=== PATIENT | female | born 2000 | race Caucasian/White ===

== ENCOUNTER → 2021-12-30 08:55 | Outpatient (CLI) | payer BC, SELFPAY | PROVIDERS: Visit Provider Obstetrics & Gynecology | DX: N92.6 Irregular menstruation, unspecified (principal) | CPT/HCPCS: 36415; 84702 ==

== ENCOUNTER → 2021-12-31 10:42 | Outpatient (CLI) | payer BC, SELFPAY ==
[2021-12-31 11:16] LABS: Basophils % 0.2 % (0.1-2.0); Eosinophils # 0.1 K/mm3 (0.0-0.4); Eosinophils % 0.8 % (0.1-12.0); Hematocrit 34.8 % (37.0-47.0); Hemoglobin 11.7 g/dL (12.2-16.2); Lymphocytes # 1.4 K/mm3 (0.7-4.5); Lymphocytes % 19.8 % (10-50); Mean Corpuscular HGB Conc 33.5 g/dL (31.8-35.4); Mean Corpuscular Hemoglobin 30.5 pg (27.0-31.2); Mean Platelet Volume 7.1 fl (7.4-10.4); Monocytes # 0.5 K/mm3 (0.1-1.0); Monocytes % 6.2 % (1.7-9.3); Neutrophils # 5.3 K/mm3 (1.8-7.8); Platelet Count 308 K/mm3 (142-424); Red Blood Count 3.83 M/mm3 (4.20-5.40); Red Cell Distribution Width 13.2 % (11.5-17.5); White Blood Count 7.3 K/mm3 (4.8-10.8)
[2022-01-01 06:15] LABS: HIV Screen 4th Generation wRfx Non Reactive (Non Reactive)
[2022-01-01 07:12] LABS: Hepatitis B Surface Antigen Negative (Negative); Hepatitis C Antibody 0.1 s/co ratio (0.0-0.9)
[2022-01-01 08:25] LABS: Rubella Antibodies, IgG 1.88 index (Immune >0.99)
[2022-01-01 12:11] LABS: Rapid Plasma Reagin Ab Titer Non Reactive (NonRea<1:1)
== END ==
PROVIDERS: Visit Provider Obstetrics & Gynecology
DX: Z34.90 Encounter for supervision of normal pregnancy, unspecified, unspecified trimester (principal)
CPT/HCPCS: 36415; 85025; 86592; 86703; 86762; 86850; 87086; 87088; 87186; 87340; 87380; G0432

== ENCOUNTER → 2022-03-25 10:06 | Outpatient (CLI) | payer BC, SELFPAY ==
--- NOTE | 2022-03-25 10:12 | US_ITS ---
FINAL REPORT CLINICAL HISTORY: 20 week anatomy scan FINDINGS: There is a single live intrauterine gestation. Presentation is cephalic. The cervix is closed and measures 3.8 cm. Placenta is posterior, grade 1. movement is noted. Heart rate is detected at 142 beats per minute. Three-vessel cord with satisfactory umbilical cord insertion. Four-chamber heart is noted. ABDOMEN: Both kidneys are unremarkable. Stomach is unremarkable. SPINE: No anomalies identified. AMNIOTIC FLUID: Appropriate amount. MEASUREMENTS: ULTRASOUND AGE: 19 weeks 5 days. GESTATION AGE: 20 weeks 0 days. ESTIMATED WEIGHT: 310 g GROWTH PERCENTILE: 31 % BPD: 4.54 cm corresponding to 19 weeks 6 days. OFD: 5.80 cm corresponding to 20 weeks 0 days. HC: 16.36 cm corresponding to 19 weeks 1 day. AC: 14.49 cm corresponding to 19 weeks 6 days. FL: 3.16 cm corresponding to 19 weeks 6 days. CEREBELLUM: 1.94 cm corresponding to 20 weeks 0 days. HUMERUS: 2.99 cm corresponding to 19 weeks 6 days. HC/AC: 1.13 CI: 78% FL/BPD: 70% FL/AC: 22% IMPRESSION: Single living IUP with an ultrasound age of 19 weeks 5 days. Reviewed, Interpreted and Dictated by Warren Morillo III, MD Transcribed by Montserrat Sharma Authenticated and [facility]
== END ==
PROVIDERS: PCP Obstetrics & Gynecology; Visit Provider Obstetrics & Gynecology
DX: Z34.90 Encounter for supervision of normal pregnancy, unspecified, unspecified trimester (principal); Z3A.20 20 weeks gestation of pregnancy
CPT/HCPCS: 76811

== ENCOUNTER 2022-05-13 15:03 | Outpatient (CLI) | payer BC, SELFPAY ==
[2022-05-13 15:12] VITALS: BMI 37.2
[2022-05-13 15:31] LABS: Microscopic, Urine URINE MICROSCOPIC (MICROSCOPIC)
[2022-05-13 15:35] VITALS: BP 129/81; PULSE 104; RESP 17; TEMP 36.7; O2SAT 99; BMI 37.2
[2022-05-13 15:38] LABS: Appearance,Urine CLEAR (Clear); Bilirubin,Urine Negative (Negative); Blood, Urine Negative (Negative); Color,Urine YELLOW (Yellow); Glucose,Urine (UA) 2+ (Negative); Ketones,Urine Negative (Negative); Leukocyte Esterase,Urine Negative (Negative); Nitrate,Urine Negative (Negative); Protein,Urine 1+ (Negative); Specific Gravity, Urine >= 1.030 (1.005-1.030); Urobilinogen,Urine 0.2 EU/dl (0.2)
[2022-05-13 15:50] LABS: Amphetamine/Metha Screen,Urine Negative ng/ml (<1000)
[2022-05-13 15:51] LABS: Barbiturates Screen,Urine Negative ng/ml (<200); Benzodiazepines Screen,Urine Negative ng/ml (<200)
[2022-05-13 15:52] LABS: Cannabinoid Screen,Urine Negative ng/ml (<50)
[2022-05-13 15:53] LABS: Cocaine Screen,Urine Negative ng/ml (<300); Methadone Screen,Urine Negative ng/ml (<300)
[2022-05-13 15:54] LABS: Opiate Screen,Urine Negative ng/ml (<300)
[2022-05-13 16:03] LABS: Phencyclidine Screen,Urine Negative ng/ml (<25)
[2022-05-13 16:13] LABS: Bacteria,Urine 3+ /lpf; WBC,Urine Occasional #/hpf (0-3)
== END 2022-05-13 16:45 | disposition home or self-care (01) ==
LOC: OBOUT 15:04 → OB 15:05
PROVIDERS: Visit Provider Obstetrics & Gynecology
DX: O26.892 Other specified pregnancy related conditions, second trimester (principal); Z3A.26 26 weeks gestation of pregnancy; R10.9 Unspecified abdominal pain; M54.50 Low back pain, unspecified
CPT/HCPCS: 59025; 80305; 81001; 87086; G0463

== ENCOUNTER → 2022-05-19 08:50 | Outpatient (CLI) | payer BC, SELFPAY ==
[2022-05-19 09:50] LABS: Glucose,Fasting 98 mg/dl (74-100)
[2022-05-19 11:10] LABS: Glucose 1 Hour 205 mg/dL (74-100)
== END ==
PROVIDERS: PCP Obstetrics & Gynecology; Visit Provider Obstetrics & Gynecology
DX: Z34.90 Encounter for supervision of normal pregnancy, unspecified, unspecified trimester (principal); Z3A.24 24 weeks gestation of pregnancy
CPT/HCPCS: 36415; 82951

== ENCOUNTER → 2022-07-10 13:24 | Outpatient (CLI) | payer BC, SELFPAY | PROVIDERS: Visit Provider Obstetrics & Gynecology | DX: Z34.90 Encounter for supervision of normal pregnancy, unspecified, unspecified trimester (principal) | CPT/HCPCS: 86403 ==

== ENCOUNTER 2022-07-28 14:49 | Inpatient (IN) | payer BC, SELFPAY ==
[2022-07-28] VITALS (40 sets, daily range): BP systolic 116–181; BP diastolic 76–115; PULSE 80–123; RESP 15–18; TEMP 36.6–36.8; O2SAT 94–99; BMI 32.2
[2022-07-28 12:39] LABS: Coronavirus 19, PCR Not Detected (NotDetected); Influenza A, PCR Not Detected (NotDetected); Influenza B, PCR Not Detected (NotDetected)
[2022-07-28 12:48] LABS: Basophils % 0.4 % (0.1-2.0); Eosinophils # 0.1 K/mm3 (0.0-0.4); Eosinophils % 1.1 % (0.1-12.0); Hematocrit 31.6 % (37.0-47.0); Hemoglobin 10.4 g/dL (12.2-16.2); Lymphocytes # 1.4 K/mm3 (0.7-4.5); Lymphocytes % 15.1 % (10-50); Mean Corpuscular Hemoglobin 28.6 pg (27.0-31.2); Mean Corpuscular Volume 86.8 fl (81-99); Mean Platelet Volume 8.8 fl (7.4-10.4); Monocytes # 0.6 K/mm3 (0.1-1.0); Monocytes % 6.5 % (1.7-9.3); Neutrophils # 7.3 K/mm3 (1.8-7.8); Neutrophils % 76.9 % (37.0-80.0); Platelet Count 236 K/mm3 (142-424); Red Blood Count 3.65 M/mm3 (4.20-5.40); Red Cell Distribution Width 16.4 % (11.5-17.5); White Blood Count 9.5 K/mm3 (4.8-10.8)
[2022-07-28 12:55] LABS: Anion Gap 4.2 mEq/L (5-15); Blood Urea Nitrogen 11 mg/dl (7-17); Calcium 8.5 mg/dl (8.4-10.2); Carbon Dioxide 23 mmol/L (22.0-30.0); Chloride 109 mmol/L (98-107); Creatinine Clearance Estimated 147 mL/min (50-200); Estimated Glomerular Filt Rate 89 ml/min (>60); GFR (African American) 108 ML/MIN (>60); Glucose 77 mg/dl (74-100); Potassium 4.2 mmoL/L (3.5-5.1); Sodium 132 mmol/L (136-145)
[2022-07-28 13:00] LABS: D-Dimer 2.36 ug/mL (0.0-0.5)
[2022-07-28 13:06] LABS: Activated Partial Thrombo Time 24.3 seconds (22.8-30.6); Fibrinogen 542 mg/dL (229.9-363.5); Prothrombin Time 9.8 seconds (10.1-12.5)
[2022-07-28 13:29] LABS: Alanine Aminotransferase 16 U/L (12-78); Aspartate Amino Transferase 25 U/L (14-36); Uric Acid 5.8 mg/dl (2.5-6.2)
[2022-07-28 14:43] LABS: POC Glucose,Bedside 71 (70-110)
--- NOTE | 2022-07-28 15:02 | P.PN_ITS ---
[facility] Disclaimer: The information contained in this section may have been updated after the patient was seen, as this information can be updated by other users. Medical History Breech presentation Elevated blood pressure affecting , antepartum Gestational diabetes LGA (large for gestational age) fetus Migraine Nausea & vomiting Screening for genetic disease carrier status Social History Smoking Status: Never smoker alcohol intake: never substance use type: denies use current occupational status: employed Travel in the last 8 weeks: None [facility] Anesthesia Checklist Patient Identification Patient Identification: Arm Band and Verbal (Name & ) Structural Data Admitted From: Home Planned Operative Procedure/s: C/S Consent for Planned Operative Procedure(s) Verified: Yes NPO Status Verified Time NPO: 00:00 Chart Verification Results Verified: CBC, BMP and HCG Additional verifications Patient : Yes Airway Assessment C-Spine Mobility Assessed: Yes TMJ Mobility Assessed: Yes Dentition: Good Dentition Neurological Assessment Level of Consciousness: Awake Hx Seizures: No Numbness or tingling in extremities: No Anesthesia Plan Anesthesia Risk discussed: Yes Anesthesia Plan: Verified ASA Class: II (E) Anesthesia Type: Spinal
--- NOTE | 2022-07-28 15:04 | EXP.OB.APHP ---
OB - H&P: HPI Antepartum History of Present Illness Chief complaint: Elevated blood pressure History of present illness: Ms Isa Lr is a 22 yo at 37w6d, by LMP and confirmed by first trimester ultrasound, who presents to [facility] Labor and Delivery from the office for elevated blood pressure. She denies headaches and vision changes. Admits to lower extremity swelling. GDMA2. She has been taking lantus 14 units nightly at bedtime and following with PDC. Reports baby is very active. Baby is breech presentation. BP in the office was 154/108, 140/108, 160/106. Upon arrival to L&D BP was 156/103. 300 + protein in urinalysis. PIH labs within normal limits History of Present Criteria for establishing EDC:: LMP confirmed by 1st trimester US care: good care Ultrasounds: normal mid trimester US Obstetrical complications: gestational diabetes and preeclampsia Medical complications: none Labs Blood type: A (+) positive Rubella: immune RPR/VDRL: nonreactive GBS status: negative HBsAG: negative PFSH PFSH Disclaimer: The information contained in this section may have been updated after the patient was seen, as this information can be updated by other users. Medical History (Updated 07/28/22 @ 15:21 by Nelida Hahn DO) Breech presentation Elevated blood pressure affecting , antepartum Gestational diabetes LGA (large for gestational age) fetus Migraine Nausea & vomiting Preeclampsia with 37 weeks completed gestation Screening for genetic disease carrier status Social History Smoking Status: Never smoker alcohol intake: never substance use type: denies use current occupational status: employed Travel in the last 8 weeks: None Review of Systems Review of Systems Review of systems:: pertinent systems reviewed and negative unless documented below Meds Home Medications and Allergies Home Medications Medication Instructions Recorded Confirmed Type insulin detemir U-100 100 unit/mL 14 unit SQ HS Diabetes 06/17/22 07/28/22 History (3 mL) subcutaneous pen (Levemir FlexTouch U-100 Insulin) blood sugar diagnostic (OneTouch 07/28/22 07/28/22 History Ultra Test strips) blood-glucose meter 07/28/22 07/28/22 History prenat.vits,varsha,[id number] 1 tab PO DAILY Supplement 07/28/22 07/28/22 History New Prescriptions to Start Prescriptions: Allergies Allergy/AdvReac Type Severity Reaction Status Date / Time No Known Allergies Allergy Verified 07/28/22 11:13 OB - H&P: Exam Physical Exam Vital signs: Temp Pulse Resp BP Pulse Ox 97.8 F 83 18 156/103 H 97 07/28/22 12:26 07/28/22 12:26 07/28/22 12:26 07/28/22 12:26 07/28/22 12:26 Constitutional no acute distress and cooperative Routine HEENT Exam Head: Present normocephalic and atraumatic Eye: Absent conjunctivae pink ENT: Present mucous membranes moist and dentition normal Routine Neck Exam Present full ROM Routine Respiratory Exam Present CTA bilaterally and normal respiratory effort Routine Cardiovascular Exam Present RRR Routine Abdominal Exam Present soft (Gravid); Absent tenderness Routine Rectal Exam Patient deferred: visual exam Routine Exam Patient deferred: external exam Routine Extremities Exam Present edema (+1 bilateral lower extremity edema) and full ROM; Absent calf tenderness Routine Neurological Exam Present alert, oriented X3 and moving all extremities Detailed Labor and Delivery Exam Membranes: intact Baseline heart rate: 130 monitor accelerations: Present monitor decelerations: None terminal manager variability: Moderate (11-25) OB - Results Labs Labs: Short CBC 07/28/22 Range/Units 12:30 WBC 9.5 (4.8-10.8) K/mm3 Hgb 10.4 L (12.2-16.2) g/dL Hct 31.6 L (37.0-47.0) % Plt Count 236 (142-424) K/mm3 BMP 07/28/22 12:30 Sodium 132 L Potassium 4.2 Chlori
[2022-07-28 15:48] LABS: Cord Blood PH 7.26 (7.35-7.45)
--- NOTE | 2022-07-28 16:22 | EXP.OP.NOTE ---
Date of procedure: 07/28/22 Pre-op Diagnosis:: 1. IUP at 37w6d 2. Preeclampsia without severe features 3. GDMA2 4. LGA baby 5. Breech presentation Post-op Diagnosis:: 1. IUP at 37w6d 2. Preeclampsia without severe features 3. GDMA2 4. LGA baby 5. Breech presentation Procedure performed:: Primary Low Transverse Section Surgeon:: Nelida Hahn DO Retail Store Clerk(s):: Carlos Montalvo MD SUPERVISOR ENGRAVING:: Ananya Bar Anesthesia: spinal Estimated blood loss (mL): 700 Clinical Note:: Ms Isa Lr is a 22 yo at 37w6d, by LMP and confirmed by first trimester ultrasound, who presents to [facility] Labor and Delivery from the office for elevated blood pressure. She denies headaches and vision changes. Admits to lower extremity swelling. GDMA2. She has been taking lantus 14 units nightly at bedtime and following with PDC. Reports baby is very active. Baby is breech presentation. BP in the office was 154/108, 140/108, 160/106. Upon arrival to L&D BP was 156/103. 300 + protein in urinalysis. PIH labs within normal limits. Operative findings:: 1. Live female baby weighing 9 lb 2 oz, AGPARs 8, 9 2. Joe Breech presentation 3. Nuchal cord x 1 4. Grossly normal appearing uterus, bilateral fallopian tubes and ovaries Operative note:: The risks, benefits and alternatives of the procedure were reviewed with the patient. Informed consent was obtained. Patient was taken to the operating room where spinal was placed. The patient received 2 grams of Ancef preoperatively. Patient was placed in dorsal supine position with a leftward tilt. SCDs in place. Fisher catheter was placed and draining clear urine prior to the start of the procedure. heart tones were obtained. Patient was then prepped and draped in normal sterile fashion. Allis clamp test was performed to ensure adequate anesthesia. A Pfannenstiel skin incision was made 2 cm above pubic symphysis. This was carried through to underlying layer of fascia. Fascia was incised in midline, extended laterally with Mattson scissors. Superior aspect of fascial incision was grasped with two Zi clamps, elevated up, and rectus muscle dissected off bluntly and sharply with Mattson scissors. The retcus muscle was then in the midline and the peritoneum was entered bluntly with a digit. Peritoneal incision was then extended superiorly and inferiorly with good visualization of the bladder. Seb retractor was inserted. The lower uterine segment was incised in a transverse fashion. Clear amniotic fluid was noted. Baby was in joe breech presentation and delivered using standard breech delivery techniques. Nuchal x 1 was easily reduced. Mouth and nares were bulb suctioned. Spontaneous cry was noted. Delayed cord clamping was performed for 60 seconds. The umbilical cord was clamped and cut. The infant was handed to awaiting pediatric staff in stable condition. Dr. Garcia was present. Apgars were 8(1 min), 9(5 min). Cord blood was obtained. Gentle traction on the umbilical cord and uterine fundal massage delivered the placenta. Placenta was intact. Placenta will be sent to pathology for review. Uterus was cleared of all clots and debris with a moist laparotomy sponge. Corners of the uterine incision were grasped with Allis clamps. The uterine incision was reapproximated with # 1 Vicryl suture in a running, locked stitch. Second layer of the same stitch was used to imbricate the incision. Excellent hemostasis was noted. Posterior cul-de-sac was cleaned with moist laparotomy sponge. (Uterus returned to the abdomen)Gutters cleared of all clots and debris with a moist laparotomy sponge. Reinspection of the lower uterine segment demonstrated small amount of oozing. Karley was applied over uterine incision. Hemostasis was noted. At this point all instruments and sponges were removed from the pelvis.? The peritoneum was grasped with Viky clamps x 3. The peritoneum was reapproximated with 0 Vicryl suture in a running stitch. The corners
--- NOTE | 2022-07-28 16:28 | P.PNANES_ITS ---
[facility] Anesthesia Record Part I Anesthesia Record I Intake, IV Amount: 1,000 Estimated blood loss (mL): 700 Urine output (mL): 100 Blood Pressure: 116/93 SaO2: 98 Pulse Rate: 97 Respiratory Rate: 16 Temperature: 98.3 F Patient is:: Awake Stable to PACU at:: 16:20
[2022-07-28 16:45] LABS: POC Glucose,Bedside 73 (70-110)
--- NOTE | 2022-07-28 17:12 | SUR.PHASEI ---
1649- detailed report called to cristy dominique 1651- pt left in stable condition with cristy dominique by cristy shields in pt room.
[2022-07-28 21:10] LABS: Microscopic,Cath URINE MICROSCOPIC (MICROSCOPIC)
[2022-07-28 21:13] LABS: Appearance,Urine/Cath CLEAR (Clear); Bilirubin,Cath Negative (Negative); Blood, Urine/Cath TRACE-I (Negative); Color,Urine/Cath YELLOW (Yellow); Glucose,Urine/Cath (UA) Negative (Negative); Ketones,Urine/Cath Negative (Negative); Leukocyte Esterase,Cath Negative (Negative); Nitrate,Cath Negative (Negative); Protein,Urine/Cath 2+ (Negative); Specific Gravity, Urine/Cath 1.025 (1.005-1.030); Urobilinogen,Cath 0.2 EU/dl (0.2)
[2022-07-28 22:14] LABS: Bacteria,Urine/Cath TRACE /lpf; Squamous Epithelial Ur./Cath Occasional #/hpf (0-5); WBC,Urine/Cath Occasional #/hpf (0-3)
[2022-07-28 23:19] LABS: Magnesium 5.7 mg/dl (1.6-2.3)
[2022-07-29] VITALS (23 sets, daily range): BP systolic 105–153; BP diastolic 66–95; PULSE 79–102; RESP 17–18; TEMP 36.3–36.8; O2SAT 96–100
[2022-07-29 06:26] LABS: POC Glucose,Bedside 110 (70-110)
[2022-07-29 07:36] LABS: Basophils % 0.1 % (0.1-2.0); Eosinophils % 0.2 % (0.1-12.0); Hematocrit 27.1 % (37.0-47.0); Lymphocytes # 0.9 K/mm3 (0.7-4.5); Lymphocytes % 9.7 % (10-50); Mean Corpuscular HGB Conc 32.4 g/dL (31.8-35.4); Mean Corpuscular Hemoglobin 28.5 pg (27.0-31.2); Mean Platelet Volume 9.2 fl (7.4-10.4); Monocytes # 0.4 K/mm3 (0.1-1.0); Monocytes % 4.5 % (1.7-9.3); Neutrophils # 7.8 K/mm3 (1.8-7.8); Neutrophils % 85.5 % (37.0-80.0); Platelet Count 222 K/mm3 (142-424); Red Blood Count 3.09 M/mm3 (4.20-5.40); Red Cell Distribution Width 16.6 % (11.5-17.5); White Blood Count 9.1 K/mm3 (4.8-10.8)
[2022-07-29 07:49] LABS: Magnesium 7.9 mg/dl (1.6-2.3)
[2022-07-29 08:12] LABS: Hemoglobin 8.8 g/dL (12.2-16.2)
[2022-07-29 08:13] LABS: MANUAL DIFFERENTIAL MANUAL DIFFERENTIAL (MANUAL DIFF)
[2022-07-29 09:04] LABS: Anisocytosis 1+; Hypochromasia 1+; Lymphocytes % 11 % (10-50); Monocytes % 4 % (2-9); Neutrophils % 85 % (42-76); Platelet Estimate Normal; Total Cells Counted 100
--- NOTE | 2022-07-29 09:39 | EXP.ANES.II ---
[facility] Anesthesia Record Part II Anesthesia Record Part II Discharge Time: 16:50 Destination: Obstetric PACU nurse assessment reviewed?: Yes Patient Condition:: Good Anesthesia Complications:: None Swallowing reflex intact?: Yes Cyanosis?: No Blood Pressure: 116/93 Pulse Rate: 90 Temperature: 98.2 F Mental Status: Alert & Oriented Pain level:: 0 Nausea and/or vomitting:: None Intake, IV Amount: 0
--- NOTE | 2022-07-29 11:10 | PC.NURSE ---
Suellen from lab called with critical mag level of 8.0. Name and verified
--- NOTE | 2022-07-29 12:53 | EXP.ACUTE.PN ---
Subjective *Date: 07/29/22 *Time: 12:53 Interval history: POD # 1 s/p PLTCS Resting comfortably in bed. Pain is controlled with medication. Lochia is appropriate. She is formula feeding. She has been on mag sulfate for seizure prophylaxis. She admits to a headache earlier that has resolved. Denies headache and vision changes now. Admits to some lower extremity swelling. Fisher catheter is in place draining clear urine. She is passing flatus. Denies fever/chills, chest pain and shortness of breath. Medical Exam Vital signs and Labs for Last 24 Hours: Vital Signs Temp Pulse Pulse Resp BP BP Pulse Ox 07/29/22 08:00 97.4 F L 79 18 112/79 100 07/29/22 05:54 83 130/75 07/29/22 04:54 88 119/66 07/29/22 04:14 98.1 F 102 H 17 121/74 98 07/29/22 03:51 81 124/82 07/29/22 02:54 82 105/68 L 07/29/22 01:54 86 111/71 07/29/22 00:41 86 124/76 07/29/22 00:21 89 129/85 07/29/22 00:01 90 153/95 H 07/28/22 23:41 86 139/90 07/28/22 23:21 89 152/100 H 07/28/22 23:00 88 17 155/100 H 96 07/28/22 22:57 84 169/104 H 07/28/22 22:51 90 174/110 H 07/28/22 22:41 95 H 159/102 H 07/28/22 22:30 85 153/100 H 07/28/22 22:20 85 149/99 H 07/28/22 22:10 89 138/95 H 07/28/22 22:00 82 148/101 H 07/28/22 21:50 80 158/100 H 07/28/22 21:40 98.1 F 81 16 148/104 H 07/28/22 21:31 91 H 166/95 H 07/28/22 21:24 83 148/105 H 07/28/22 21:21 84 162/102 H 07/28/22 21:10 86 151/91 H 07/28/22 21:01 83 165/95 H 07/28/22 20:51 82 146/91 H 07/28/22 20:41 91 H 168/87 H 07/28/22 20:30 81 156/107 H 07/28/22 20:21 81 158/108 H 07/28/22 20:06 93 H 165/115 H 07/28/22 20:02 93 H 157/102 H 07/28/22 20:00 96 H 165/91 H 07/28/22 19:51 95 H 170/92 H 94 L 07/28/22 19:36 89 161/81 H 96 07/28/22 19:18 95 H 153/87 H 95 07/28/22 19:13 94 H 158/91 H 95 07/28/22 19:08 116 H 165/93 H 07/28/22 19:03 97 H 174/95 H 07/29/22 06:58 85 118/77 07/28/22 18:59 123 H 181/86 H 07/28/22 20:58 168/95 H 07/28/22 20:28 160/110 H 07/28/22 16:50 98.2 F 90 15 116/93 H 99 07/28/22 16:40 87 15 135/92 H 99 07/28/22 16:30 85 16 142/85 H 99 07/28/22 16:20 98.3 F 84 16 151/76 H 99 07/28/22 16:35 16 07/29/22 09:39 98.2 F 90 116/93 H 07/28/22 16:29 98.3 F 97 H 16 116/93 H Intake and Output 07/28/22 07/29/22 07/29/22 23:59 07:59 15:59 Intake Total 1000 / 1000 0 / 0 Output Total 300 / 300 950 / 2650 1700 / 2650 Balance 700 / 700 -950 / -2650 -1700 / -2650 Intake: Intake, Total IV Amount 1000 / 1000 0 / 0 Output: Output, Urine Amount (Catheter) 300 / 300 950 / 2650 1700 / 2650 Fisher 300 / 300 950 / 2650 1700 / 2650 Laboratory Results - last 24 hr 07/28/22 12:30: PT 9.8 L, INR 0.90, APTT 24.3, Fibrinogen 542 H 07/28/22 12:30: D-Dimer 2.36 H, Sodium 132 L, Potassium 4.2, Chloride 109 H, Carbon Dioxide 23, Anion Gap 4.2 L, BUN 11, Creatinine 0.80, Estimated Creat Clear 147, Estimated GFR 89, Est GFR ( Amer) 108, Glucose 77, Uric Acid 5.8, Calcium 8.5, AST 25, ALT 16 07/28/22 12:30: SARS-CoV-2 (PCR) Not detected, Influenza A Untype (PCR) Not detected, Influenza Type B (PCR) Not detected 07/28/22 12:30: Blood Type A Positive, Antibody Screen Negative, Crossmatch (AHG) See Detail 07/28/22 14:36: POC Glucose 71 07/28/22 15:15: Urine Color Yellow, Urine Appearance Clear, Urine pH 6.0, Ur Specific Coin 1.025, Urine Protein 2+, Urine Glucose (UA) Negative, Urine Ketones Negative, Urine Blood Trace-i, Urine Nitrate Negative, Urine Bilirubin Negative, Urine Urobilinogen 0.2, Ur Leukocyte Esterase Negative, Urine RBC None, Urine WBC Occasional, Ur Squamous Epith Cells Occasional, Urine Bacteria Trace 07/28/22 15:4
[2022-07-29 13:38] LABS: Magnesium 6.4 mg/dl (1.6-2.3)
[2022-07-30 03:19] VITALS: BP 120/88; PULSE 84; RESP 16; TEMP 36.6; O2SAT 98
[2022-07-30 08:45] VITALS: BP 142/75; PULSE 76; RESP 18
--- NOTE | 2022-07-30 11:59 | EXP.ACUTE.PN ---
Subjective *Date: 07/30/22 *Time: 11:59 Interval history: POD # 2 s/p PLTCS Resting comfortably. Pain is controlled. Bottle feeding. Light lochia. Tolerating regular diet. Voiding without difficulty and passing flatus. She had an episode after the shower yesterday where she felt dizzy. She called the nurse and the nurse helped her back to bed. She did not pass out. She states once she lied down she felt better. No other episodes since then. Denies headaches and vision changes. She received mag sulfate after delivery. Magnesium sulfate was discontinued after 16 hours for mag level of 8.0. BP has been normotensive on Labetalol 100 mg BID. Denies fever/chills, chest pain and shortness of breath. No headaches, dizziness or lightheadedness. Admits to lower extremity swelling. Medical Exam Vital signs and Labs for Last 24 Hours: Vital Signs Temp Pulse Resp BP Pulse Ox 07/30/22 03:19 97.9 F 84 16 120/88 98 07/29/22 21:03 97.9 F 86 17 143/80 H 96 07/29/22 15:54 120/77 07/29/22 14:54 129/76 07/29/22 13:54 128/73 07/29/22 12:54 147/88 H 07/29/22 16:10 97.8 F 87 18 132/85 98 Intake and Output 07/29/22 07/30/22 07/30/22 23:59 07:59 15:59 Other: Number of Unmeasured Voids 1 1 Laboratory Results - last 24 hr 07/29/22 13:23: Magnesium 6.4 H D I & O for Labs for Last 24 Hours: Intake & Output 07/27/22 07/28/22 07/29/22 07/30/22 23:59 23:59 23:59 23:59 Intake Total 1000 / 1000 0 / 0 Output Total 300 / 300 2650 / 2650 Balance 700 / 700 -2650 / -2650 Weight 188 lb Head: Present atraumatic and normocephalic ENT: Present normal exam Neck: Present full ROM Respiratory: Present CTA bilaterally and normal respiratory effort Cardiac: Present Reg Rate and Rhythm GI: Present soft and normal bowel sounds; Absent distention, tenderness or guarding Comments:: Uterine fundus firm and below umbilicus, incision clean/dry/intact with steri strips in place Rectal (female): Present deferred (female): Present deferred Extremities: Present full ROM and edema (+2 bilateral lower extremity edema); Absent calf tenderness Neuro: Present alert, awake, oriented x 3 and moves all extremities Assessment and Plan *Assessment and plan (1) with 37 weeks completed gestation: Status: Acute Category: Medical Code(s): Z3A.37 - 37 weeks gestation of (2) S/P : Status: Acute Category: Surgical Code(s): Z98.891 - History of uterine scar from previous surgery (3) Preeclampsia: Status: Acute Category: Medical Code(s): O14.90 - Unspecified pre-eclampsia, unspecified trimester (4) Gestational diabetes: Problem Comment: GDMA2 Status: Acute Category: Medical Code(s): O24.419 - Gestational diabetes mellitus in , unspecified control (5) LGA (large for gestational age) fetus: Status: Acute Category: Medical (6) Breech presentation: Status: Acute Category: Medical Code(s): O32.1XX0 - Maternal care for breech presentation, not applicable or unspecified (7) Acute blood loss anemia: Status: Acute Category: Medical Code(s): D62 - Acute posthemorrhagic anemia Plan Continue routine care Encouraged increased ambulation Continue labetalol 100 mg BID Plan d/c home tomorrow
[2022-07-30 12:00] VITALS: BP 142/90; PULSE 86
[2022-07-30 16:30] VITALS: BP 130/72; PULSE 78
[2022-07-30 19:56] VITALS: BP 136/92; PULSE 97; RESP 18; TEMP 36.7; O2SAT 98
[2022-07-31 00:14] VITALS: BP 139/92; PULSE 82; RESP 18; TEMP 36.4
[2022-07-31 04:18] VITALS: BP 140/90; PULSE 85; RESP 18; TEMP 36.7; O2SAT 97
--- NOTE | 2022-07-31 11:35 | EXP.DC.SUM ---
General Admission date:: 07/28/22 Discharge date: 07/31/22 HPI HPI HPI: POD # 3 s/p PLTCS Resting comfortably. Pain is controlled. Bottle feeding. Light lochia. Tolerating regular diet. Voiding without difficulty and passing flatus. Denies headaches and vision changes. BP has been normotensive on Labetalol 100 mg BID. Denies fever/chills, chest pain and shortness of breath. No headaches, dizziness or lightheadedness. Admits to lower extremity swelling that is improving. Hospital Course Hospital Course Hospital Course: Ms Isa Lr is a 22 yo at 37w6d, by LMP and confirmed by first trimester ultrasound, who presents to [facility] Labor and Delivery from the office for elevated blood pressure. She denied headaches and vision changes. Admited to lower extremity swelling. GDMA2. She has been taking lantus 14 units nightly at bedtime and following with PDC. Baby is breech presentation. BP in the office was 154/108, 140/108, 160/106. Upon arrival to L&D BP was 156/103. 300 + protein in urinalysis. Remainder of [facility] labs within normal limits. She underwent primary on 07/28/22 and delivered a live baby girl (baby's name is Susana) weighing 9 lb 2 oz, APGARs 8, 9. EBL 700 mL. After delivery BP increased with mild range and severe range. She was started on mag sulfate and Labetalol 100 mg BID. Mag sulfate was discontinued 16 hours postoperatively secondary to mag level of 8.0. BP has been normotensive. She received Venofer 200 mg IV x 1 dose for acute blood loss anemia. She is doing well postoperatively. Light lochia. She is bottle feeding. Voiding without difficulty and passing flatus. Tolerating regular diet. Vital signs stable, afebrile. No chest pain or shortness of breath. Denies fever/chills, headaches and vision changes. +1 bilateral lower extremity swelling. No calf tenderness to palpation. She was discharged home on POD # 3 with follow-up in the office in 4 days for BP check. Exam Data for Last 24 hours Vital signs and Labs for Last 24 Hours: Temp Pulse Resp BP Pulse Ox 98.0 F 85 18 140/90 97 07/31/22 04:18 07/31/22 04:18 07/31/22 04:18 07/31/22 04:18 07/31/22 04:18 I & O for Last 24 hours: Intake & Output 07/28/22 07/29/22 07/30/22 07/31/22 23:59 23:59 23:59 23:59 Intake Total 1000 / 1000 0 / 0 Output Total 300 / 300 2650 / 2650 Balance 700 / 700 -2650 / -2650 Weight 188 lb Constitutional Constitutional: no acute distress *Routine HEENT Exam Head: Present normocephalic and atraumatic Eye: Absent conjunctivae pink ENT: Present mucous membranes moist and dentition normal *Routine Neck Exam Neck: Present full ROM *Routine Respiratory Exam Respiratory: Present CTA bilaterally and normal respiratory effort *Routine Cardiovascular Exam Cardiovascular: Present RRR *Routine Abdominal Exam Abdominal: Present soft and normoactive bowel sounds; Absent tenderness or distended Comments: Incision clean/dry/intact, steri strips in place *Routine Rectal Exam Patient deferred: visual exam *Routine Exam Patient deferred: external exam *Routine Extremities Exam Extremities: Present edema (+1 bilateral lower extremity edema) and full ROM; Absent calf tenderness *Routine Neurological Exam Neurological: Present alert, oriented X3 and moving all extremities Routine Psychiatric Exam Psychiatric: Present normal affect and cooperative DS: Diagnosis Discharge Diagnosis (1) with 37 weeks completed gestation: Status: Acute (2) S/P : Status: Acute (3) Preeclampsia: Status: Acute (4) Gestational diabetes: Status: Acute Problem details: GDMA2 (5) LGA (large for gestational age) fetus: Status: Acute (6) Breech presentation: Status: Acute (7) Acute blood loss anemia: Status: Acute Meds Home Medications and Allergies Home Medications Medication Instructions Recorded Confirmed Type blood sugar diagnostic (OneTouch
== END 2022-07-31 13:10 | disposition home or self-care (01) | DRG 787 ==
LOC: OBOUT 14:50 → OB 14:50
PROVIDERS: Admitting Provider Obstetrics & Gynecology; Visit Provider Obstetrics & Gynecology
PROC: 10D00Z1 Extraction of Products of Conception, Low, Open Approach (ICD-10-PCS; CPT 59514; principal; 2022-07-28 15:00)
DX: O14.94 Unspecified pre-eclampsia, complicating childbirth (principal); D62 Acute posthemorrhagic anemia; Z3A.37 37 weeks gestation of pregnancy; Z37.0 Single live birth; O32.1XX0 Maternal care for breech presentation, not applicable or unspecified; O24.429 Gestational diabetes mellitus in childbirth, unspecified control; O36.63X0 Maternal care for excessive fetal growth, third trimester, not applicable or unspecified; O90.81 Anemia of the puerperium
CPT/HCPCS: 59514; 36415; 59025; 80048; 81001; 82800; 82962; 83735; 84450; 84460; 84550; 85007; 85025; 85378; 85384; 85610; 85730; 86850; 94761; C9290; C9803; G0283; J1756; J2405; U0003; U0005